=== PATIENT | female | born 1985 | race Hispanic/Latino ===

== ENCOUNTER → 2023-12-18 | Outpatient (CLI) | payer BC | END | disposition home or self-care (01) | LOC: RAH 08:28 | PROVIDERS: ATTEND Pediatrics | DX: K44.9 Diaphragmatic hernia without obstruction or gangrene (principal); K21.00 Gastro-esophageal reflux disease with esophagitis, without bleeding; K95.89 Other complications of other bariatric procedure; Z98.84 Bariatric surgery status | CPT/HCPCS: 74240 ==

== ENCOUNTER 2025-02-20 08:11 | Day surgery (SDC) | payer BC ==
[~2025-02-20] VITALS: Ht 162.6 cm; Wt 108.9 kg
[2025-02-20] VITALS (10 sets, daily range): BP systolic 111–147; BP diastolic 69–94; PULSE 54–72; RESP 13–16; TEMP 97.5–98.5
[2025-02-20] MEDS ORDERED: ERGO500093 PO (12:38)
[2025-02-20] MEDS ORDERED: FERR-72 PO (12:38)
[2025-02-20] MEDS ORDERED: FAMO40TA7 PO (12:38)
[2025-02-20] MEDS ORDERED: CHOL100046 PO (12:38)
[2025-02-20] MEDS: 0.9%NACL 1000ML 1,000 ML IV ONE (12:39)
== END 2025-02-20 14:20 | disposition home or self-care (01) ==
LOC: ENDO 08:11 → DAH 08:11 → ENDO 14:20
PROVIDERS: ATTEND Internal Medicine Gastroenterology
DX: R12 Heartburn (principal); K31.89 Other diseases of stomach and duodenum; E55.9 Vitamin D deficiency, unspecified; D50.9 Iron deficiency anemia, unspecified; K95.89 Other complications of other bariatric procedure; K21.9 Gastro-esophageal reflux disease without esophagitis; K91.2 Postsurgical malabsorption, not elsewhere classified; Z98.84 Bariatric surgery status; Z98.0 Intestinal bypass and anastomosis status; Z98.890 Other specified postprocedural states; Z79.899 Other long term (current) drug therapy
CPT/HCPCS: 43239; 81025; J7030; A4620; A4215